=== PATIENT | female | born 1945 | race African-American/Black ===

== ENCOUNTER 2024-08-22 20:32 | Emergency (ER) | payer OTHER ==
[2024-08-22 20:45] VITALS: BMI 23.1
[2024-08-22] MEDS ORDERED: ACETAMINOPHEN 500 MG TABLET (FP) ONE (21:39)
[2024-08-22] MEDS: ACETAMINOPHEN 500 MG TABLET (FP) PO ONE (21:51)
[2024-08-23 01:03] VITALS: BP 154/103; PULSE 60; RESP 16; TEMP 98
== END 2024-08-23 01:03 ==
LOC: JER 20:32
DX: S93.402A Sprain of unspecified ligament of left ankle, initial encounter (principal); X58.XXXA Exposure to other specified factors, initial encounter
CPT/HCPCS: 73610-TC-LT-FY; 73630-TC-LT; 93971-TC; 99284-25

== ENCOUNTER 2025-01-07 15:09 | Inpatient (IN) | payer OTHER ==
[2025-01-07] MEDS ORDERED: ACETAMINOPHEN 325 MG TABLET (FP) ONE (17:31)
[2025-01-07] MEDS: ACETAMINOPHEN 500 MG TABLET (FP) PO ONE (18:22)
[2025-01-07 21:00] LABS: ABSOLUTE IMMATURE GRANULOCYTES 0.01 x10^3/uL (0.0-0.031); BASOPHILS # 0.01 x10^3/uL (0.01-0.08); EOSINOPHIL % 1.2 % (0.7-5.8); EOSINOPHILS # 0.08 x10^3/uL (0.04-0.36); HEMATOCRIT 42.5 % (34.1-44.9); HEMOGLOBIN 13.8 g/dL (11.2-15.7); MCHC 32.5 g/dl (32.2-35.5); MEAN CELL VOLUME 94.4 fl (79.4-94.8); MONOCYTE # 0.37 x10^3/uL (0.24-0.86); MONOCYTE % 5.4 % (4.7-12.5); PLATELET COUNT 119 x10^3/uL (182-369); RDW 13.2 % (12.5-17.0)
[2025-01-07 21:18] LABS: POTASSIUM 4.4 mmol/L (3.5-5.1)
[2025-01-07 21:20] LABS: BLOOD UREA NITROGEN 10.6 mg/dL (7-18); CALCIUM 10.5 mg/dL (8.5-10.1)
[2025-01-07 21:21] LABS: ALBUMIN 3.9 g/dl (3.4-5.0)
[2025-01-07 21:24] LABS: CREATININE 0.7 mg/dL (0.55-1.3)
[2025-01-07 21:25] LABS: TOT PROT 8.1 g/dl (6.4-8.2)
[2025-01-07] MEDS ORDERED: ACETAMINOPHEN 325 MG TABLET (FP) PO PRN (21:32)
[2025-01-07 23:58] LABS: EPI CELLS 22 /uL (0-25.1); HYALINE CASTS 0 /uL (0-3.1); URINE APPEARANCE CLEAR; URINE BACTERIA 278 /uL (0-1359); URINE BILIRUBIN NEGATIVE (NEGATIVE); URINE COLOR YELLOW; URINE GLUCOSE (UA) NEGATIVE (NEGATIVE); URINE KETONE 1+ (NEGATIVE); URINE LEUK ESTERASE 1+ (NEGATIVE); URINE NITRITE NEGATIVE (NEGATIVE); URINE PROTEIN 1+ (NEGATIVE); URINE RBC 13 /uL (0-23.9); URINE WBC 50 /uL (0-25.8)
[2025-01-08 01:37] VITALS: BMI 21.3
[2025-01-08] MEDS: PIPERACILLIN/TAZOB 3.375 GM 3.375 GM in DEXTROSE 5%-WATER - 50 ML IVPB SCH (06:04)
[2025-01-08 07:33] LABS: HEMATOCRIT 40.8 % (34.1-44.9); HEMOGLOBIN 13.1 g/dL (11.2-15.7); MCHC 32.1 g/dl (32.2-35.5); MEAN CELL VOLUME 95.3 fl (79.4-94.8); MEAN PLT VOLUME 11.3 fl (9.4-12.3); PLATELET COUNT 165 x10^3/uL (182-369); RDW 13.2 % (12.5-17.0)
[2025-01-08 07:54] LABS: POTASSIUM 3.7 mmol/L (3.5-5.1)
[2025-01-08 07:58] LABS: BLOOD UREA NITROGEN 8.7 mg/dL (7-18); MAGNESIUM 2.1 mg/dL (1.8-2.4)
[2025-01-08 08:01] LABS: CREATININE 0.6 mg/dL (0.55-1.3)
[2025-01-08 08:02] LABS: PHOSPHOROUS 3.1 mg/dL (2.5-4.9)
[2025-01-08] MEDS ORDERED: ENOXAPARIN NA (PORCINE) 40 MG/0.4 ML DISP.SYRIN SQ SCH (10:00)
[2025-01-08] MEDS: MEMANTINE HCL 10 MG TABLET (FP) PO SCH (10:17)
[2025-01-08] MEDS: SERTRALINE HCL 50 MG TABLET (FP) PO SCH (10:17)
[2025-01-08] MEDS: ERYTHROMYCIN 0.5% OPHTHALMIC OINTMENT 3.5 GM TUBE OU SCH (11:37)
[2025-01-08] MEDS: VALPROIC ACID 250 MG CAPSULE PO SCH (11:37)
[2025-01-08] MEDS: VALPROIC ACID 250 MG PO SCH (11:38)
[2025-01-08] MEDS: ATORVASTATIN CA 20 MG TABLET (FP) PO SCH (21:48)
[2025-01-09] MEDS: VANCOMYCIN/WATER FOR INJ (PEG) 1 GM/200 ML BAG IVPB SCH (01:39)
[2025-01-09 08:21] VITALS: RESP 16
[2025-01-09 17:26] VITALS: BP 138/84; PULSE 99; TEMP 98.1
[2025-01-09] MEDS: PIPERACILLIN/TAZOB 3.375 GM 50 ML IVPB SCH (18:40)
[2025-01-10] MEDS ORDERED: PIPERACILLIN/TAZOB 3.375 GM 3.375 GM in DEXTROSE 5%-WATER - 50 ML IVPB SCH (03:00)
== END 2025-01-09 21:15 | disposition short-term general hospital (02) | DRG 603 ==
LOC: JER 15:09 → JERBED 20:23 → J7W 01-08 01:50
PROVIDERS: ADMIT Internal Medicine
DX: L03.213 Periorbital cellulitis (principal); F03.90 Unspecified dementia, unspecified severity, without behavioral disturbance, psychotic disturbance, mood disturbance, and anxiety; I10 Essential (primary) hypertension; E78.5 Hyperlipidemia, unspecified
CPT/HCPCS: 36415; 70450-TC; 70486-TC; 71045-TC-FY; 72125-TC; 72170-TC-FY; 73521-TC-FY; 80048; 80053; 81003; 83735; 84100; 85025; 85027; 87081; 87635; 97116-GP; 97161-GP; 99285-25